=== PATIENT | female | born 1960 | race Two or more races ===

== ENCOUNTER 2021-01-14 18:22 | Emergency (ER) | payer OTHER ==
[~2021-01-14] VITALS: Ht 165.1 cm; Wt 88.5 kg
[2021-01-14] MEDS ORDERED: EVOXAC30 MG (19:33)
[2021-01-14] MEDS ORDERED: TOPAMAX50 MG PO (19:34)
[2021-01-14] MEDS ORDERED: ACID REDUCER20 M1 (19:34)
[2021-01-14] MEDS ORDERED: LOTREL 5-10 MG1 CAP (19:34)
[2021-01-15] MEDS ORDERED: KETO10TA2 PO (01:07)
[2021-01-15] MEDS ORDERED: CIPRO500 MG PO (01:07)
== END 2021-01-15 | disposition home or self-care (01) ==
LOC: ER 18:22
DX: R10.2 Pelvic and perineal pain (principal); N39.0 Urinary tract infection, site not specified; Z03.818 Encounter for observation for suspected exposure to other biological agents ruled out